=== PATIENT | female | born 1980 | race Caucasian/White ===

== ENCOUNTER 2019-05-28 20:01 | Inpatient (IN) | payer OTHER ==
[~2019-05-28] VITALS: Ht 165.1 cm; Wt 85.0 kg
[2019-05-28 20:06] VITALS: Ht 165.1 cm; Wt 85.0 kg
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
[2019-05-28 20:41] LABS: BASOPHIL % 0.5 % (0-2); PLATELET COUNT 193 x10^3mcL (130-400)
[2019-05-28 20:42] LABS: RED CELL DISTRIBUTION WIDTH 17.6 % (11.5-14.5)
[2019-05-28 20:59] LABS: CALCIUM 8.2 mg/dL (8.5-10.1); CARBON DIOXIDE 22.9 mmol/L (21-32); CHLORIDE SERUM 109 mmol/L (98-107); CREATININE SERUM 1.2 mg/dL (0.6-1.0); GFR1 53 mL/min; GLUCOSE SERUM 125 mg/dL (74-106); POTASSIUM SERUM 3.8 mmol/L (3.5-5.1); SODIUM SERUM 147 mmol/L (136-145)
[2019-05-28 21:03] LABS: AMPHETAMINE QUAL UR NONE DETECTED (See below)
[2019-05-28 21:11] LABS: ALBUMIN 3.7 g/dL (3.4-5.0); ALKALINE PHOSPHATASE 164 U/L (46-116); ALT/SGPT 62 U/L (14-59); AST/SGOT 54 U/L (15-37); BILIRUBIN TOTAL 0.3 mg/dL (0.20-1.00); TOTAL PROTEIN, SERUM 7.9 g/dL (6.4-8.2)
--- NOTE | 2019-05-28 21:11 | NUR ---
PT IS COMPLAINING OF 10/10 R SHOULDER PAIN AND "ESOPHAGUS PAIN". ER MD TREVIZO MADE AWARE OF PT MULTIPLE REQUESTS FOR PAIN MEDS. NO NEW ORDERS AT THIS TIME
--- NOTE | 2019-05-28 21:13 | NUR ---
SPOKE WITH LAB ABOUT URINALYSIS ORDER .THEY STATE THAT THEY CAN USE THE URINE ALREADY PROVIDED FOR THE DRUG SCREEN
--- NOTE | 2019-05-28 21:30 | NUR ---
PT DENIES TAKING ANY MEDICATIONS AT HOME. PRIMARY MD AT BEDSIDE
--- NOTE | 2019-05-28 22:31 | NUR ---
PT COMPLAINING OF CONTINUED PAIN IN R SHOULDER AND NOW STOMACH. MD TREVIZO MADE AWARE. NO NEEW ORDERS AT THIS TIME
--- NOTE | 2019-05-28 23:03 | NUR ---
PT HAD 400 CC EMESIS. MD TREVIZO MADE AWARE
--- NOTE | 2019-05-28 23:14 | NUR ---
PT BELONGINGS TAKEN FROM PT AND STICKER HAS BEEN PLACED ON THEM
--- NOTE | 2019-05-28 23:15 | NUR ---
ORIGINAL 5150 WTRITTEN BY MD TREVIZO PLACED IN PT CHART. PT MADE AWARE
--- NOTE | 2019-05-28 23:29 | NUR ---
REPORT GIVEN TO SUSAN FARIAS
[2019-05-28 23:50] LABS: FREE T4 0.87 ng/dL (0.76-1.46); T4(THYROXINE) 6.6 ug/dL (4.7-13.3)
--- NOTE | 2019-05-28 23:52 | NUR ---
PT TAKEN TO CT ER MD WOULD LIKE TO WAIT FOR CT RESULTS BEFORE PT GOES UPSTAIRS DUE TO ANOTHER EPISODE OF VOMITING
[2019-05-29 00:28] LABS: T3 TOTAL 0.97 ng/mL
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
[2019-05-29 01:56] VITALS: BP 148/105
--- NOTE | 2019-05-29 02:36 | NUR ---
REGLAN 10 MG IVP ADMINISTERED ORDERED.PT APPEARS VERY ANXIOUS AT THIS TIME.DEMANDING PAIN MEDICINE AT THIS TIME.CALLED DR. MCKEON AND MADE AWARE.
--- NOTE | 2019-05-29 03:04 | NUR ---
MORPHINE 1 MG IVP ADMINISTERED.APPEARS CALMER AT THIS TIME.EARLIER C/O PAIN TO RIGHT SIDE OF THE HEAD AND FEELS LIKE BUMP IS GETTING BIGGER.VERY TENDER TO TOUCH.NO CHANGE IN LOC.DR. MCKEON MADE AWARE.
[2019-05-29 06:15] VITALS: BP 122/72
--- NOTE | 2019-05-29 06:18 | NUR ---
PT SLEPT WELL AFTER ATIVAN AND MORPHINE.NO WITHDRAWAL SYMPTOMS NOTED.CONTINUE TO C/O PAIN TO L SHOULDER AND L SIDE OF THE HEAD,BETTER THAN EARLIER.REMAINS ON 1:1 SITTER.CONSTANTLY ENCOURAGED TO VERBALIZED HER FEELINGS.INTERACTING WITH STAFF.ON CONTACT ISOLATION FOR HX MRSA TO NARES.WILL CONTINUE TO MONITOR.
[2019-05-29 07:06] LABS: BASOPHIL % 0.6 % (0-2)
[2019-05-29 07:11] LABS: PLATELET COUNT 115 x10^3mcL (130-400); RED CELL DISTRIBUTION WIDTH 17.4 % (11.5-14.5)
[2019-05-29 07:14] LABS: CALCIUM 6.6 mg/dL (8.5-10.1); CARBON DIOXIDE 21.8 mmol/L (21-32); CHLORIDE SERUM 110 mmol/L (98-107); CREATININE SERUM 0.9 mg/dL (0.6-1.0); GFR1 > 60 mL/min; GLUCOSE SERUM 89 mg/dL (74-106); MAGNESIUM 1.1 mg/dL (1.8-2.4); PHOSPHOROUS 3.1 mg/dL (2.5-4.9); POTASSIUM SERUM 3.8 mmol/L (3.5-5.1); SODIUM SERUM 145 mmol/L (136-145)
[2019-05-29 07:20] VITALS: BP 141/93
--- NOTE | 2019-05-29 07:40 | NUR ---
RECEIVED PATIENT AWAKE/ALERT, APPEAR ANXIOUS ASKING FOR ATIVAN, MILD DISTRESS NOTED. TELE #16 SR W/ HR 90, IV TO LH INTACT AND INFUSING WELL. INFORM PATIENT WILL CHECK ON ATIVAN DOSE. SITTER REMAIN AT BEDSIDE. CONT TO MONITOR.
--- NOTE | 2019-05-29 07:43 | NUR ---
PATIENT OFF FLOOR VIA WHEELCHAIR FOR CT HEAD.
--- NOTE | 2019-05-29 07:51 | NUR ---
PATIENT BACK FROM CT IN BED CONNECTED TO IV PUMP AND CONT IVF ORDERED, ATIVAN 1MG IVP GIVEN, PATIENT RESTING W/ EYES CLOSED. CONT TO MONITOR FOR SAFETY.
--- NOTE | 2019-05-29 09:41 | NUR ---
PATIENT LAYING IN BED AROUSABLE, NORCO 1 TAB PO AND ALL PO MEDS ADMINISTERED. C/O PAIN 7/10 TO SHOULDER, NECK AREA, AND HEAD. PATIENT ABLE TO SWALLOW ALL PILLS AND TOLERATED. NEEDS MET. CONT TO MONITOR. SITTER REMAIN AT BEDSIDE.
--- NOTE | 2019-05-29 10:15 | NUR ---
PAGE DR. LORENZO AT [phone] FOR ORDER, MG 1.1
--- NOTE | 2019-05-29 10:22 | NUR ---
PATIENT IS MORE AWAKE/ALERT TALKING TO SITTER, ZOFRAN 4MG IVP ADMINISTERED. NEEDS MET. CALL LIGHT WITHIN REACH. DR. LORENZO WAS AWARE MG 1.1
--- NOTE | 2019-05-29 11:13 | NUR ---
PATIENT OFF FLOOR FOR XRAY BY WHEELCHAIR.
--- NOTE | 2019-05-29 12:13 | NUR ---
PATIENT BACK FROM XRAY AND IN BED, LIBRIUM AND MAGOXIDE 400MG PO GIVEN. MG 1.1 LEVEL COVER. NEEDS MET. TELE # 16 SR HR 92. CONT TO MONITOR SITTER REMAIN AT BEDSIDE.
[2019-05-29 14:00] VITALS: BP 159/88
--- NOTE | 2019-05-29 14:38 | NUR ---
PATIENT AWAKE/ALERT IN BED NO ACUTE DISTRESS NOTED. ATIVAN 1MG IVP. IV TO LH INTACT AND PATENT. SITTER REMAIN AT BEDSIDE. CONT TO MONITOR.
--- NOTE | 2019-05-29 14:53 | NUR ---
MEDICATE FOR NAUSEA WITH ZOFRAN 4MG IVP, PATIENT RESTING IN BED CALM. CONT TO MONITOR.
--- NOTE | 2019-05-29 15:57 | NUR ---
TALK TO DR. LORENZO PATIENT HAS 2 EPISODE VOMITING, RECENTLY MEDICATED PATIENT WITH ZOFRAN AND PER PATIENT DOESN'T WORK, AND NORCO HAS NOT CONTROL HER PAIN. PER DR. LORENZO WILL ORDER MORPHINE X 1 AND ALTERNATIVE ANTIEMETIC MED.
--- NOTE | 2019-05-29 16:45 | NUR ---
PATIENT RESTING IN BED CALM, MEDICATE FOR NAUSEA AND PAIN 8/10 WITH PHENERGAN 12.5MG IVP AND MORPHINE 2MG IVP, NSR HR 85 NOTED. CONT TO MONITOR. SITTER REMAIN AT BEDSIDE.
[2019-05-29 16:54] VITALS: BP 142/96
--- NOTE | 2019-05-29 18:45 | NUR ---
PATIENT SLEEPING AT THIS TIME. SITTER REMAIN AT BEDSIDE. CONT TO MONITOR.
[2019-05-29 19:21] VITALS: BP 133/88
--- NOTE | 2019-05-29 19:40 | NUR ---
RECEIVED REPORT FROM DAY SHIFT NURSE, PARISH FARIAS. PT IS A/O X4. SPEECH IS CLEAR. DENIES SINCLAIR. SEIZURE PRECAUTIONS. ON TELE #16 READING SR 97. VS ARE FOLLOWED: BP 133/88 (108), SAO2 97%, HR 94, TEMP 99.7. CIRCULATION WNL. BREATHING IS EVEN AND UNLABORED. DENIES CP. ABD IS SOFT AND NONDISTENDED. LAST BM WAS [place]. PT C/O NAUSEA, WILL MEDICATE PER OCT. BRP. AMBULATORY. SKIN INTACT. SITTER AT BEDISDE. BED IN LOWEST POSITION. CALL LIGHT WITHIN REACH. WILL CONTINUE TO MONITOR.
--- NOTE | 2019-05-29 19:48 | NUR ---
PT C/O OF NAUSEA AND REQUESTED ATIVAN. WILL MEDICATED PER MAR ORDER WITH ZOFRAN AND ATIVAN. WILL CONTINUE TO MONITOR.
--- NOTE | 2019-05-29 21:30 | NUR ---
PT IS RESTING IN BED WITH EYES CLOSED. DENIES NAUSEA AT THIS TIME. SITTER AT BEDSIDE. WILL CONTINUE TO MONITOR.
--- NOTE | 2019-05-30 00:48 | NUR ---
PT C/O 02/26 GENERALIZED PAIN. WAS MEDICATED WITH NORCO PER OCT ORDER. WILL CHECK FOR EFFECTIVENESS. BREATHING IS EVEN AND UNLABORED. NO SIGNS OF RESP. DISTRESS. BED IN LOWEST POSITION. SITTER AT BEDSIDE. CALL LIGHT WITHIN REACH. WILL CONTINUE TO MONITOR.
--- NOTE | 2019-05-30 03:09 | NUR ---
PT C/O ITCHINESS ON FACE. STATES MAY POSSIBLY BE D/T ZOFRAN BC SHE HAS HAD A SIMILAR REACTION BEFORE. DR MCKEON AWARE. AWAITING ORDERS.
--- NOTE | 2019-05-30 03:20 | NUR ---
ADMINISTERED BENADRYL PRN PER MD ORDER. WILL REASSESS ITCHINESS. PT IS TEARFUL. BREATHING IS EVEN AND UNLABORED. NO SIGNS OF RESP. DISTRESS. SITTER AT BEDSIDE. CALL LIGHT WITHIN REACH. WILL CONTINUE TO MONITOR.
--- NOTE | 2019-05-30 04:15 | NUR ---
PT STATES ITCHINESS GOT BETTER BUT IS STILL PRESENT. WILL CONTINUE TO MONITOR.
[2019-05-30 05:15] VITALS: BP 146/96
--- NOTE | 2019-05-30 05:49 | NUR ---
PT SLEPT IN INTERVALS THROUGHOUT THE NIGHT. PT COMPLIED WITH NURSING CARE THROUGHOUT THE SHIFT WITH NO ACUTE EVENTS OVERNIGHT. COMFORT AND SAFETY MEASURES MAINTAINED. ALL NEEDS ASSESSED AND ATTENDED TO. WILL CONTINUE TO MONITOR AND ENDORSE CARE TO DAY SHIFT NURSE.
[2019-05-30 06:14] LABS: BASOPHIL % 0.7 % (0-2)
[2019-05-30 06:22] LABS: CALCIUM 7.4 mg/dL (8.5-10.1); CARBON DIOXIDE 24.6 mmol/L (21-32); CHLORIDE SERUM 101 mmol/L (98-107); GFR1 > 60 mL/min; GLUCOSE SERUM 92 mg/dL (74-106); MAGNESIUM 1.2 mg/dL (1.8-2.4); PHOSPHOROUS 3.2 mg/dL (2.5-4.9); POTASSIUM SERUM 3.6 mmol/L (3.5-5.1); SODIUM SERUM 136 mmol/L (136-145)
[2019-05-30 07:23] LABS: RED CELL DISTRIBUTION WIDTH 16.9 % (11.5-14.5)
--- NOTE | 2019-05-30 07:23 | NUR ---
ENDORSED CARE TO DAY SHIFT NURSE
[2019-05-30 07:25] LABS: PLATELET COUNT 80 x10^3mcL (130-400)
[2019-05-30 07:54] VITALS: BP 155/101
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
--- NOTE | 2019-05-30 10:00 | NUR ---
BP REDUCED AND PATIET RESTING COMFORTABALY AT THIS TIME. CONTINUED WITH ONE TO ONE AT BEDSIDE. SAFETY MAINTAINED. NO VOMITING OR NAUSEA NOTED.
[2019-05-30 11:21] VITALS: BP 144/90
--- NOTE | 2019-05-30 13:52 | NUR ---
PATIENT WITH SMALL EMESIS AND WANTS ATIVAN. STATES THE NORCO MAKES HER ITCHY AND THROW UP. WANTS IV PAIN MEDICATIONS. WILL CALL FOR ORDERS. CONSTANTINO AND LJ GIVEN.
--- NOTE | 2019-05-30 14:16 | NUR ---
ADVISED THE DOCTOR FOR PATIENT REQUEST FOR PAIN MEDICATION IVP. WILL ORDER TIMES ONE ONLY. AWAITING ORDERS INDICATED.
--- NOTE | 2019-05-30 16:14 | NUR ---
PATIENT WOKE UP FROM SLEEPING AND AGAIN REQUESTED PAIN MEDICATION FOR PAIN TO THE HEAD, SHOULDERS AND BACK. GAVE MORPHINE ORDERED. PATIENT HAS REPORTED TREMORS BY THE STAFF AT BEDSIDE. TOLERATED OOB TO THE RESTROOM AND BACK.
--- NOTE | 2019-05-30 17:02 | NUR ---
MORPHINE WAS EFFECTIVE AND PATIENT IS SLEEPING QUIETLY AT THIS TIME.
[2019-05-30 18:32] VITALS: BP 144/83
--- NOTE | 2019-05-30 18:45 | NUR ---
PATIENT GIVEN ATIVAN AND ZOFRAN SHE REQUESTED. PATIENT INDICATED SHE HAS NAUSEA AND PAIN. THE MORPHINE GIVEN EARLIER WAS EFFECTIVE ONLY FOR A SHORT WHILE.
--- NOTE | 2019-05-30 19:55 | NUR ---
SHIFT REASSESSMENT DONE.PATIENT ALERT AND ORIENTED.NOT IN RESP DISTRESS.BREATHING EASY.5151,SITTER AT BEDSIDE FOR SAFETY.IVF NS AT 100 CC/ HOUR.R WRIST.TELE 16 SR.NO MORE CONTACT ISOLATION.HAD HX,SCREEN CAME BACK NEGATIVE.CALL LIGHT IN REACH.
--- NOTE | 2019-05-30 20:50 | NUR ---
PATIENT BEGGING FOR MSO4 FOR PAIN AND REGLAN IV FOR STOMACH UPSET,SAYS ONE TIME OF REGLAN,SHE WILL NOT BOTHER ME ALL NIGHT.
--- NOTE | 2019-05-30 21:27 | NUR ---
MARIE AND ELEAZAR GIVEN IVP,SAYS SHE WILL NOT BOTHER ALL NIGHT.
[2019-05-30 21:40] VITALS: BP 144/83
--- NOTE | 2019-05-31 01:19 | NUR ---
CHECKED AT INTERVALS,SLEEPING WELL.
--- NOTE | 2019-05-31 03:19 | NUR ---
PATIENT TRIED NORCO BUT ZOFRAN GIVEN FIRST,ALSO ATIVAN GIVEN REQUESTED.IVF NS AT 100 CC/ HOUR INFUSING WELL.
--- NOTE | 2019-05-31 05:40 | NUR ---
PATIENT REFUSED TYLENOL,WANTING MSO4,WANT ME TO CALL DR MCKEON.
--- NOTE | 2019-05-31 06:04 | NUR ---
PATIENT BEGGING FOR MSO4,DR MCKEON,STILL DID NOT RESPOND.
[2019-05-31 06:34] VITALS: BP 118/76
[2019-05-31 06:48] LABS: CALCIUM 7.4 mg/dL (8.5-10.1); CARBON DIOXIDE 22.9 mmol/L (21-32); CHLORIDE SERUM 104 mmol/L (98-107); CREATININE SERUM 0.9 mg/dL (0.6-1.0); GFR1 > 60 mL/min; GLUCOSE SERUM 108 mg/dL (74-106); MAGNESIUM 1.4 mg/dL (1.8-2.4); PHOSPHOROUS 3.9 mg/dL (2.5-4.9); POTASSIUM SERUM 3.6 mmol/L (3.5-5.1); SODIUM SERUM 138 mmol/L (136-145)
[2019-05-31 07:05] LABS: BASOPHIL % 0.6 % (0-2)
[2019-05-31 07:13] LABS: PLATELET COUNT 72 x10^3mcL (130-400); RED CELL DISTRIBUTION WIDTH 17.8 % (11.5-14.5)
--- NOTE | 2019-05-31 08:00 | NUR ---
RECEIVED PATIENT ALERT AND ORIENTED TIMES FOUR. PATIENT HAS COMPLAINED OF PAIN AND SHE IS REQUESTING ATIVAN AND THEN ZOFRAN FOR NAUSEA. SHE HAD RECEIVED ULTRAM OVER NIGHT AND A DOSE OF REGLAN. SHE HAS BEEN WITH STATED NAUSEA AND PAIN DUE TO FALL FROM A [place] AND DUE TO ALCOHOL INTOXICATION AND POSSIBLE GASTRIC UPSET? PATIENT SYMPTOMS ARE VAGUE NO VISABLE INJURY NOTED AND NO EMESIS HAS BEEN SEEN. SHE CAN EAT BUT ONLY AFTER RECEIVING THE ZOFRAN WILL SHE EVEN ATTEMPT TO EAT.
--- NOTE | 2019-05-31 08:19 | NUR ---
Patient alert and oriented x4. Asked for IVP Ativan for pain and Zofran for nauseousness. Patient visited by residents, patient asked for change of pain medication as [place] makes her really nauseated and vomit. Residents reassured patient that pain will be managed.
--- NOTE | 2019-05-31 08:22 | NUR ---
PATIENT IV SITE IS SWELLING AND PATIENT HAD RECEIVED HER ATIVAN AND ZOFRAN AND ADVISED SHE WILL BE NEEDING A NEW IV SITE. PATIENT WAS SEEN BY THE RESIDENTS AND PLAN OF CARE DISCUSSED. ARM BAND REMOVED AND PATIENT CONTINUED WITH ONE TO ONE SITTER AT BEDSIDE. WILL START NEW IV INDICATED.
[2019-05-31 08:48] VITALS: BP 137/80
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
--- NOTE | 2019-05-31 09:54 | NUR ---
PATIENT IS REQUESTING MORE ATIVAN AT THIS TIME. PER NURSING JUDGEMENT PATIENT IS NOT MEET A CRITERIA FOR ATIVAN AT THIS TIME. SHE HAS NO TREMORS OR ANY MAJOR ANXIETY OR RESTLESSNESS AT THIS TIME. SHE HAS BEEN ASKING AROUND THE CLOCK AND WHEN EVER SHE IS AWAKE SHE IF REQUESTING SOMETHING FOR EITHER PAIN OR NAUSEA. SHE ATE HER MEAL AND HAS BEEN IN AND OUT OF BED AND SLEEPING ON AND OFF.
--- NOTE | 2019-05-31 11:25 | NUR ---
PATIENT REQUESTED PAIN MEDICATION BUT BY THE TIME STAFF REACHED THE ROOM, PATIENT IS ASLEEP AGAIN. ILL CONTINUE TO MONITOR.
--- NOTE | 2019-05-31 11:45 | NUR ---
REQUESTED PAIN MEDICATION AGAIN AND WILL CHECK FOR SYMPTOMS INDICATED.
--- NOTE | 2019-05-31 11:59 | NUR ---
SITTER AT BEDSIDE AND STAFF WAS STANDING AT THE BED AND MONITORING THE PATIENT TO SEE IF SHE SHOWED ANY SIGSN OF PAIN OR ANY GRIMACING OR RESTLESSNESS. NO SIGNS NOTED AT THIS TIME. STAFF CALLED HER NAME AND SHE WAS STARTED TO AWAKENING. SHE STATES SHE HAS BEEN LYING STILL WITH HER EYES CLOSED DUE TO PAIN AND SHE HAS BEEN TOSSING AND TURING IN PAIN. GAVE ATIVAN INDICATED. WILL CONTINUE TO MONITOR INDICATED.
[2019-05-31 16:39] VITALS: BP 154/96
--- NOTE | 2019-05-31 17:15 | NUR ---
GAVE PATIENT ATIVAN ORDERED DUE TO COMPLAINTS OF ANXIETY. PATIENT ALSO REQUESTED ZOFRAN AND GAVE INDICATED. NO VOMITING NOTED. TOLERATED OOB AND UP TO HE RESTROOM AND BACK. PATIENT HAS NO SIGNS OF WOUND, ABRASIONS, OR OPEN AREAS.
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
[2019-05-31 20:47] VITALS: BP 149/103
--- NOTE | 2019-05-31 20:50 | NUR ---
ATTEMPTED TO MEDICATE PT WITH NORCO PO DUE TO ALSO REPORTING ANXIETY AND NEEDS ATIVAN IVP. PT REQUESTING MORPHINE FOR GENERALIZED BODY PAIN. EDUCATED PT DUE TO THE SEDATIVE EFFECTS OF ATIVAN, I CANNOT MEDICATE WITH IVP PAIN MEDICATION AT THIS TIME, PT REFUSING TO TAKE NORCO PO DUE TO "IT CAUSED ME TO VOMITING AND MY FACE TURNED RED AND ITCHY. THEY HAD TO GIVE ME A WHOLE BUNCH OF BENDRYL, I WOULD PREFER NOT TO TAKE NORCO AT ALL AND WAIT FOR YOU TO CALL THE DOCTOR". WILL PAGE RESIDENT FOR ANY NEW ORDERS.
[2019-05-31 23:05] VITALS: BP 151/95
[2019-06-01 06:33] VITALS: BP 164/96
--- NOTE | 2019-06-01 07:15 | NUR ---
RECEIVED PT. IN BED SLEEPING. PT. CAN BE AROUSED EASILY. NO SOB, NO N/V NOTED. PT. DENIES ANY PAIN AT THIS TIME. CUTTING SUPERVISOR AT BEDSIDE TO MAINTAIN SAFETY. NS RUNNING AT 100 CC/HR VIA IV SITE AT L UPPER CHEST. BED IN LOW POS., CALL LIGHT WITHIN REACH. SIDE RAILS UP X3.
--- NOTE | 2019-06-01 08:35 | NUR ---
PATIENT COMPLAINED OF FEELING NAUSEATED, ZOFRAN 4MG IV GIVEN.
--- NOTE | 2019-06-01 08:40 | NUR ---
PATIENT COMPLAINED OF FEELING ANXIOUS, ATIVAN 1MG IV GIVEN.
[2019-06-01 08:57] VITALS: BP 143/96
[2019-06-01 12:01] VITALS: BP 142/92
--- NOTE | 2019-06-01 15:39 | NUR ---
OLY GALEANO SPOKE WITH IBIS AT [facility] AND INFORMED HER THAT PATIENT IS MEDICALLY CLEAR TO BE TRANSFER TO INPATIENT PSYCH. PACKET FAXED REQUESTED. ATTENDING NURSE BRANDON DUEÑAS.
[2019-06-01 16:48] VITALS: BP 154/90
--- NOTE | 2019-06-01 18:09 | NUR ---
PATIENT IN STABLE CONDITION AT THIS TIME. PATIENT REQUESTED FOR ATIVAN 1 MG IV X3 ALONG WITH MORHINE 1 MG IV X3 DURING SHIFT. PATIENT ALSO REQUESTED ZOFRAN 4 MG X3 DURING SHIFT. WILL CONTINUE TO MONITOR.
--- NOTE | 2019-06-01 18:50 | NUR ---
PT. STATED SHE IS FEELING VERY ANXIOUS AT THIS TIME AND REQUESTED TO HAVE ATIVAN 1MG IV AGAIN. WILL ADMINISTER ATIVAN 1MG IV ORDERED.
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
[2019-06-01 20:22] VITALS: BP 153/77
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
--- NOTE | 2019-06-01 22:22 | NUR ---
SPOKE TO DAVID FROM JULIANA ZAPATA, UPDATED IN REGARDS TO PLAN OF CARE. PT HAS BEEN RECEIVING MORPHINE FREQUENTLY AND SINCE [facility] CANNOT PROVIDE MORPHINE, DISCUSSED WITH PT THAT PLAN WILL BE TO WEAN OFF MORPHINE WITH NORCO. PT STATING SHE HAS ITCHINESS FROM NORCO, EDUCATED PT WILL PREMEDICATE WITH BENADRYL PO 1 HOUR BEFORE NORCO TO LESSEN ITCHINESS. PT AGREEABLE WITH PLAN OF CARE. WILL FOLLOW THROUGH WITH RESIDENT FOR BENADRYL ORDER. PER JULIANA ZAPATA (DAVID) WILL UPDATE HER IN AM IN REGARDS TO MEDICATION ADMINISTRATION.
--- NOTE | 2019-06-02 05:00 | NUR ---
PT RESTED IN INTERVALS DURING SHIFT, NO ACUTE CHANGES OCCURRING OVERNIGHT. PT TOLERATED ONE DOSE OF NORCO LAST EVENING 1 HOUR AFTER BENADRYL ADMINISTRATION. PT DENIES N/V/D DURING SHIFT. NO ITCHING OR RASH NOTED. PT AWARE POSSIBLE TRANSFER PENDING AND SHE IS AWARE MANY ACCEPTING FACILITIES WILL NOT BE ABLE TO PROVIDE MORPHINE. PT OPEN TO OTHER FORMS OF PAIN MANAGEMENT AND PT AGREEABLE WITH THE NEED FOR PSYCHIATRIC ATTENTION. PT REPORTS BM (NO N/V/D), PT REQUESTING SNACKS BEFORE FALLING ASLEEP. PT STILL ON LIBRIUM WITH MINIMAL HAND TREMORS NOTED. SZ PRECAUTIONS IN PLACE, IV SITE REMAINS PATENT TO LEFT UPPER CHEST. ALL COMFORT AND SAFETY MEASURES PROVIDED FOR, CALL LIGHT WTIHIN REACH, BED IN LOWEST POSITION, WILL CONTINUE TO MONITOR.
--- NOTE | 2019-06-02 05:23 | NUR ---
Still no vacancy at any of the designated facilities , will continue to find placement for pt. and endorsed to AM shift.
[2019-06-02 06:30] VITALS: BP 143/89
--- NOTE | 2019-06-02 07:20 | NUR ---
PT IS AAOX4. DENIES SUICIDAL IDEATION AND PLAN AT THIS TIME. PT COMPLIENT WITH CARE AT THIS TIME. TELE [address] READING NSR. IVF RUNNING TO L UPPER CHEST, SITE WNL. NO S/S OF INFECTION OR INFILTRATION. RESP EVEN AND UNLABORED. PT STATES SHE HAS NECK PAIN BUT IT IS TOLERABLE AT THIS TIME AND DECREASING SINCE SHE JUST TOOK NORCO AT 0630. SOFTWARE ENGINEER SALES IN ROOM ON ONE TO ONE SUPERVISION. BED IN LOWEST POSITION. WILL CONTINUE TO MONITOR.
[2019-06-02 08:30] VITALS: BP 128/83
--- NOTE | 2019-06-02 08:31 | NUR ---
DR. MARTINEZ AND MED TEAM MET WITH PT AND DISCUSSED POC. PT TO GET UP WITH P/T AND ATTEMPT TO HAVE ACTIVITY. THE NEED FROM HOME O2 WILL BE ASSESSED. PT AGREED WITH POC.
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
--- NOTE | 2019-06-02 10:58 | NUR ---
PT MADE AWARE [facility] HAS ACCEPTED HER. PT WILL DISCHARGE TODAY. PT WILL BE MADE AWARE WITH AMBULANCE FOR TRANSPORT WILL ARRIVE.
--- NOTE | 2019-06-02 12:38 | NUR ---
NORCO 7/325MG PO GIVEN FOR NECK PAIN 01/27. WARM COMPRESS APPLIED TO NECK AREA. PT REPOSITIONED FOR COMFORT. RESP EVEN AND UNLABORED. NO DISTRESS NOTED. CALL LIGHT WITHIN REACH. BED IN LOW POSTION. [facility] STAFF MEMBER AT BEDSIDE ON ONE TO ONE SUPERVISION.
--- NOTE | 2019-06-02 14:01 | NUR ---
ZOFRAN 4MG IVP GIVEN FOR NAUSEA. ATIVAN 1MG IVP GIVEN FOR ANXIETY. RESP EVEN AND UNLABORED. PT DENIES PAIN. CALL LIGTH WITHIN REACH. WILL CONTINUE TO MONITOR.
--- NOTE | 2019-06-02 14:08 | NUR ---
SCHEDULED MED GIVEN AND TOLERATED WELL. RESP EVEN AND UNLABORED. NO DISTRESS NOTED. CALL LIGHT WITHIN REACH. [facility] [place] STAFF AT BEDSIDE ON ONE TO ONE SUPERVISION.
--- NOTE | 2019-06-02 16:08 | NUR ---
Fax to the following facilities [facility] no beds [facility] no beds [facility] no beds
[2019-06-02 16:55] VITALS: BP 146/90
--- NOTE | 2019-06-02 16:57 | NUR ---
PT AMBULATED WITH P/T WITH MIN ASSIST. ATIVAN 1MG IVP GIVEN FOR ANXIETY. PT HAS NECK PAIN AND KNEE PAIN 4/10 WARM BLANKET APPLIED TO BOTH AREAS. PT VERBALIZED RELIEF. WILL CONTINUE TO MONITOR[place] [facility] [place] ONE SUPERVISION. CALL LIGHT WITHIN REACH.
--- NOTE | 2019-06-02 18:22 | NUR ---
Patient was accepted at [facility] but they were not able to accept patient because she has commercial insurance. S/W Sandra patients RN to see if patient has any other insurance. Per sandra, patient has [employer]. Called [facility] at [phone] and spoke with Jyoti. Patient is eligible since 09-20-2018 to present.
--- NOTE | 2019-06-02 18:37 | NUR ---
RECEIVED CALL FROM [facility] SENIOR [employer] TAX MANAGER. PT HAS BEEN EXCEPTED TO [facility]. RECEIVED CALL FROM DAVID WITH [facility] / FAX [phone]. FAXED DAVID PT'S INSURANCE CARDS. DAVID STATED PT CAN NOT TRANSFER TO [facility] BECAUSE THE PT HAS INSURANCE AND WILL NOT QUALIFY FOR MEDICAL. DAVID STATED SHE WILL FAX THE PT CHART TO [facility] AND SEE IF THEY WILL ACCEPT PT. CHARGE NURSE ALEKSANDER FARIAS MADE AWARE. PT MADE AWARE.
--- NOTE | 2019-06-02 18:53 | NUR ---
PT IS AAOX4. ON ONE TO ONE SUPERVISION. TELE [address] READING NSR. IVF RUNNING TO L UPPER CHEST, SITE WNL. NORCO 7.5MG PO GIVEN FOR GENERALIZED PAIN 01/27. BENEDRYL 25 MG PO GIVEN WITH NORCO DUE TO PT BECOMING ITCHY WHEN SHE TAKES NORCO. ATIVAN 1 MG IVP GIVEN FOR ANXIETY. RESP EVEN AND UNLABORED. CALL LIGHT WITHIN REACH. WILL ENDORSE ALL CARE TO NOC [facility].
--- NOTE | 2019-06-02 18:56 | NUR ---
Faxed chart to [facility] to see if patient can be accepted to their facility
--- NOTE | 2019-06-02 19:08 | NUR ---
PT RECEIVED A/O X4, ABLE TO MAKE NEEDS KNOWN, SEIZURE PRECAUTIONS IN PLACE. TELE #16, HR-[id number], PT DENIES ANY CP/PRESSURE. PULSES PALPABLE, NO EDEMA PRESENT. BREATHING IS EVEN AND UNLABORED ON RA, DENIES SOB, NO RESP DISTRESS OBSERVED. ABD SOFT AND NONDISTENDED, BOWEL TONES ACTIVE X4 QUAD, PT REPORTS EPISODES OF NAUSEA, BUT DENIES ANY AT THIS TIME. VOIDS FREELY, BRP. AMBULATORY WITH STEADY GAIT. SKIN IS WARM AND DRY, INTACT. PT DENIES HAVING ANY PAIN AT THIS TIME. PT DENIES HAVING ANY SI OR A PLAN, SITTER AT BEDSIDE. IV TO LEFT UPPER CHEST, PATENT AND INTACT, SITE WNL. NO ACUTE DISTRESS NOTED. BED IN LOWEST SETTING, SIDE RAILS UP X2, CALL LIGHT WITHIN REACH. WILL CONT TO MONITOR.
--- NOTE | 2019-06-02 21:05 | NUR ---
Called the following facilities: [facility] s/w Liza packet faxed Sanjay Jimenez s/w Alyssia packet fax Sou[facility] Sultana s/w Jeimy no beds [facility] s/w Mayuri no beds [facility] s/e Khaleamanda packet faxed [facility] s/w Tracey, they have packet [facility] s/w Ambika no beds
--- NOTE | 2019-06-02 21:16 | NUR ---
PT C/O NAUSEA, PRN ZOFRAN IVP GIVEN ORDERED. NO ACUTE DISTRESS NOTED. WILL CONT TO MONITOR.
--- NOTE | 2019-06-02 23:54 | NUR ---
Spoke to Tawnya charge nurse , Sanjay robert pt. will continue to make calls for placement. At this time there are no vacancy at any of the designated facilities.
--- NOTE | 2019-06-03 00:14 | NUR ---
PT C/O ANXIETY, PRN ATIVAN IVP GIVEN ORDERED. PT ALSO C/O 02/26 GENERALIZED PAIN. INFORMED PT THAT NORCO IS NOT DUE YET. PT STATES, "THE NORCO DOESN'T REALLY HELP WITH MY PAIN, I THINK I NEED SOMETHING STRONGER." DR MCKEON MADE AWARE. NO ACUTE DISTRESS NOTED. SITTER AT BEDSIDE. CALL LIGHT WITHIN REACH. WILL CONT TO MONITOR.
--- NOTE | 2019-06-03 01:10 | NUR ---
PT C/O 02/26 GENERALIZED PAIN, ONE TIME ORDER OF TORADOL IVP GIVEN ORDERED PER DR MCKEON. NO ACUTE DISTRESS NOTED. WILL CONT TO MONITOR.
--- NOTE | 2019-06-03 02:11 | NUR ---
PT C/O ANXIETY, PRN ATIVAN IVP GIVEN ORDERED PER EMAR. NO ACUTE DISTRESS NOTED. WILL CONT TO MONITOR.
--- NOTE | 2019-06-03 05:15 | NUR ---
PT SLEPT AT INTERVALS THROUGHOUT THE EVENING. NO ACUTE CHANGES ENCOUNTERED DURING SHIFT. PT REPORTS GOOD PAIN RELIEF FROM TORADOL IVP. PT DENIES HAVING ANY PAIN AT THIS TIME. ALL NEEDS MET AND ANTICIPATED. IVF INFUSING WELL TO LEFT UPPER CHEST, SITE WNL. SITTER AT BEDSIDE. CALL LIGHT WITHIN REACH. WILL ENDORSE CARE TO AM NURSE.
[2019-06-03 06:11] LABS: BASOPHIL % 0.4 % (0-2)
[2019-06-03 06:13] LABS: PLATELET COUNT 86 x10^3mcL (130-400); RED CELL DISTRIBUTION WIDTH 17.6 % (11.5-14.5)
[2019-06-03 06:26] VITALS: BP 139/74
[2019-06-03 06:32] LABS: CALCIUM 8.6 mg/dL (8.5-10.1); CARBON DIOXIDE 22.8 mmol/L (21-32); CHLORIDE SERUM 104 mmol/L (98-107); GFR1 > 60 mL/min; GLUCOSE SERUM 114 mg/dL (74-106); MAGNESIUM 1.6 mg/dL (1.8-2.4); PHOSPHOROUS 4.3 mg/dL (2.5-4.9); POTASSIUM SERUM 3.9 mmol/L (3.5-5.1); SODIUM SERUM 138 mmol/L (136-145)
--- NOTE | 2019-06-03 07:05 | NUR ---
RECIEVED PT FROM NIGHT NURSE. PT IS LAYING DOWN IN BED WITH HOB UP RESTING WITH EYES CLOSED. PT LOOKS TO BE IN NO ACUTE DISTRESS AT THIS TIME. IV SITE PATENT WITH NO SIGNS OF ERYTHEMA OR SWELLING WITH IV FLUIDS INFUSING. TELE MONITOR 16 PRESENT. SITTER AT BEDSIDE, CALL LIGHT WITHIN REACH. WILL CONTINUE TO MONITOR.
--- NOTE | 2019-06-03 07:05 | NUR ---
PT C/O ANXIETY, NO ORDERS AVAILABLE ON EMAR. DR LORENZO MADE AWARE. AWAITING ORDERS AT THIS TIME.
--- NOTE | 2019-06-03 07:33 | NUR ---
PT IN NO ACUTE DISTRESS. CONTINUITY OF CARE ENDORSED TO AM NURSE. ALL QUESTIONS AND CONCERNS ADDRESSED.
[2019-06-03 08:32] VITALS: BP 170/87
--- NOTE | 2019-06-03 09:21 | NUR ---
Received report from food services manager. still looking for placent.
[2019-06-03 09:57] VITALS: BP 140/80
--- NOTE | 2019-06-03 11:31 | NUR ---
Faxed to the following facilities that insurance contracts with; [facility] s/w Anupama Macias s/w S[facility] s/w Lovely Peterson s/w Des
--- NOTE | 2019-06-03 12:35 | NUR ---
RECIEVED CALL FROM [facility] FOR REPORT TO SEE IF PT ACCEPTED TO [facility]. WILL CONTINUE TO MONITOR
[2019-06-03] MEDS ORDERED: PHE25I IV (13:11)
[2019-06-03] MEDS ORDERED: APAP/HYDROCODON1 T13 PO (13:11)
[2019-06-03] MEDS ORDERED: LEXAPRO10 MG PO (13:12)
--- NOTE | 2019-06-03 13:32 | NUR ---
Patient has been accepted to [facility]. S/W Anupama at [facility] Dr. Franco accepting MD. No report needed. will assigned bed when patient arrives Patients 5150 to expires today and they need a new 5150 before transferring patient. Gave information to WENDY Murry. States she will relay message to Alethea. Also gave information to Felecia, ayaz RN.
[2019-06-03 14:04] VITALS: BP 138/82
[2019-06-03 14:19] VITALS: BP 138/82
--- NOTE | 2019-06-03 14:30 | NUR ---
RECEIVED CALL FROM CASE MANAGEMENT STATING PT WILL BE TRANSFERED IN APPROXIMATLY 20 MINUTE TO [facility]. INFORMED PT OF TRANSFER WHO IS AGREEABLE TO TRANSFER. PT SIGNED TRANSFER PAPERWORK AND DISCHARGE PAPERWORK. REPORT GIVEN TO MAYCOL EARLY BEFORE TRANSFER WAS CONFIRMED. PT CHANGED INTO PERSONAL CLOTHING. TELE MONITOR REMOVED AND RETURNED TO TELE STATION. AWAITING TRANSPORT TEAM. SITTER AT BEDSIDE.
--- NOTE | 2019-06-03 15:02 | NUR ---
PT LOOKS TO BE IN NO ACUTE DISTRESS AND DENIES ANY PAIN AT TIME OF TRANSFER. TRANSPORT TEAM ARRIVED TO TRANSFER PT TO [facility]. PT WENT TO LOBBY VIA TRANSPORT GURNEY ACCOMPANIED BY TRANSPORT TEAM. IV REMOVED AND CATHETER FULLY INTACT. TRANSFER PACKAGE GIVEN TO TRANSPORT TEAM. ALL QUESTIONS AND CONCERNS ADDRESSED.
== END 2019-06-03 15:04 | DRG 91 ==
LOC: ED 20:01 → MU 22:51 → DU 22:51 → MU 05-29 01:47 → DU 05-29 05:41
PROVIDERS: Emergency Medicine; ADMIT Family Medicine
DX: G92 Toxic encephalopathy (principal); N17.0 Acute kidney failure with tubular necrosis; R45.851 Suicidal ideations; E87.0 Hyperosmolality and hypernatremia; F33.2 Major depressive disorder, recurrent severe without psychotic features; D63.8 Anemia in other chronic diseases classified elsewhere; E87.8 Other disorders of electrolyte and fluid balance, not elsewhere classified; R74.0 Nonspecific elevation of levels of transaminase and lactic acid dehydrogenase [LDH]; E83.51 Hypocalcemia; F10.129 Alcohol abuse with intoxication, unspecified; Y90.9 Presence of alcohol in blood, level not specified; K74.60 Unspecified cirrhosis of liver; Z88.2 Allergy status to sulfonamides; Z88.8 Allergy status to other drugs, medicaments and biological substances; Z91.5 Personal history of self-harm; Z79.899 Other long term (current) drug therapy
CPT/HCPCS: 84439; 97116-GP; C9113; G0378; G0480; J1885; J2060; J2270; J2405; J2550; J2765; J7030; Q0092; Q0163